=== PATIENT | male | born 2000 | race Caucasian/White ===

== ENCOUNTER 2018-11-01 00:50 | Emergency (ER) | payer SELFPAY ==
[~2018-11-01] VITALS: Ht 177.8 cm; Wt 103.4 kg
[2018-11-01] MEDS ORDERED: TETANUS,DIPTH,PERTUSS P/F (BOOSTRIX) 0.5 ML VIAL IM ONE (01:45)
[2018-11-01] MEDS ORDERED: CYCL5TAB PO (02:51)
[2018-11-01] MEDS ORDERED: MELO-170 PO (02:51)
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
--- NOTE | 2018-11-01 03:00 | NUR ---
patient refused to allow cleansing of his right arm, however did allow cleansing of right knee.
[2018-11-01 03:08] VITALS: BP 132/77
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
== END 2018-11-01 03:08 | disposition home or self-care (01) ==
LOC: ER 00:55
DX: S80.01XA Contusion of right knee, initial encounter (principal); Z90.49 Acquired absence of other specified parts of digestive tract; Z23 Encounter for immunization; V49.50XA Passenger injured in collision with unspecified motor vehicles in traffic accident, initial encounter; W22.12XA Striking against or struck by front passenger side automobile airbag, initial encounter
CPT/HCPCS: 71101; 73090; 73562; 73590; 90715